=== PATIENT | female | born 1960 | race Caucasian/White ===

== ENCOUNTER 2024-08-13 07:42 | Outpatient (CLI) | payer OTHER ==
[2024-08-13 09:33] LABS: Anion Gap 12 mmol/L (10-20); BUN (Urea Nitrogen) 14 mg/dL (9.8-20.1); Calc. Creatinine Clearance 0 mL/min (70-130); Calcium 9.3 mg/dL (7.8-10.44); Carbon Dioxide 25 mmol/L (23-31); Chloride 108 mmol/L (98-107); Estimated GFR 85; Glucose 90 mg/dL (80-115); Potassium 3.8 mmol/L (3.5-5.1); Sodium 141 mmol/L (136-145)
[2024-08-13 09:34] LABS: PTT 31.4 sec (22.9-36.1); Prothrombin Time 13.2 sec (12.0-14.7)
[2024-08-13 09:45] LABS: #Basophils 0.03 10x3/uL (0.0-0.2); %Basophils 0.4 % (0.0-1.0); %Eosinophils 1.6 % (0.0-10.0); %Lymphocytes 37.8 % (21.0-51.0); %Monocytes 9.6 % (0.0-10.0); %Neutrophils 50.2 % (42.0-75.0); Hemoglobin 13.4 g/dL (12.0-16.0); Mean Corpuscular HGB CONC 32.7 g/dL (32.0-36.0); Mean Corpuscular Hemoglobin 30.6 pg (27.0-31.0); Mean Corpuscular Volume 93.6 fL (78.0-98.0); Mean Platelet Volume 11.4 fL (7.4-10.4); Platelet Count 207 10x3/uL (130-400); RBC Distribution Width 13.8 % (11.5-14.5); Red Blood Cell (RBC) Count 4.38 mill/uL (4.20-5.40)
== END 2024-08-13 07:43 | disposition home or self-care (01) ==
LOC: LABBT 07:42
PROVIDERS: ATTEND Internal Medicine Cardiovascular Disease
DX: Z01.812 Encounter for preprocedural laboratory examination (principal); I48.0 Paroxysmal atrial fibrillation
CPT/HCPCS: 80048; 85025; 85610; 85730

== ENCOUNTER 2024-09-28 07:59 | Outpatient (CLI) | payer OTHER ==
[2024-09-28 08:33] LABS: #Basophils Less than 0.03 10x3/uL (0.0-0.2); %Basophils 0.3 % (0.0-1.0); %Eosinophils 0.9 % (0.0-10.0); %Lymphocytes 32.3 % (21.0-51.0); %Monocytes 8.4 % (0.0-10.0); %Neutrophils 57.8 % (42.0-75.0); Hematocrit 44.3 % (36.0-47.0); Hemoglobin 14.6 g/dL (12.0-16.0); Mean Corpuscular Hemoglobin 30.7 pg (27.0-31.0); Mean Corpuscular Volume 93.1 fL (78.0-98.0); Mean Platelet Volume 11.1 fL (7.4-10.4); Platelet Count 221 10x3/uL (130-400); RBC Distribution Width 13.7 % (11.5-14.5); Red Blood Cell (RBC) Count 4.76 mill/uL (4.20-5.40)
[2024-09-28 08:46] LABS: Anion Gap 11 mmol/L (10-20); BUN (Urea Nitrogen) 24 mg/dL (9.8-20.1); Calc. Creatinine Clearance 0 mL/min (70-130); Calcium 9.3 mg/dL (7.8-10.44); Carbon Dioxide 25 mmol/L (23-31); Chloride 108 mmol/L (98-107); Estimated GFR 97; Glucose 93 mg/dL (80-115); Potassium 4.1 mmol/L (3.5-5.1); Sodium 140 mmol/L (136-145)
== END 2024-09-28 08:00 | disposition home or self-care (01) ==
LOC: LABBT 07:59
PROVIDERS: ATTEND Internal Medicine Cardiovascular Disease
DX: Z01.812 Encounter for preprocedural laboratory examination (principal); I48.0 Paroxysmal atrial fibrillation
CPT/HCPCS: 80048; 85025; 85610; 85730

== ENCOUNTER 2024-10-01 08:55 | Day surgery (SDC) | payer OTHER ==
[2024-09-28 08:13] VITALS: BMI 32.5
[2024-10-01] MEDS ORDERED: Rocuronium Bromide 10 MG/ML (10ML VIAL) ONE (09:52)
[2024-10-01] MEDS ORDERED: PROPOFOL 20 ML ONE (09:53)
[2024-10-01] MEDS ORDERED: Midazolam HCl 2 mg/2 ml Vial ONE (09:53)
[2024-10-01] MEDS ORDERED: fentaNYL 50 mcg/mL 1 mL Vial ONE ×2 (09:53→16:03)
[2024-10-01] MEDS ORDERED: Lidocaine 2% PF 100 mg/5 ml Syringe ONE (09:54)
[2024-10-01] MEDS ORDERED: Heparin 25,000 units/D5W 500 ML ONE (10:02)
[2024-10-01] MEDS ORDERED: Protamine Sulfate 50 MG/5 ML VIAL ONE ×2 (10:02→15:00)
[2024-10-01] MEDS ORDERED: Heparin 10,000 UNITS/ 10 ML VIAL ONE (10:02)
[2024-10-01] MEDS ORDERED: ePHEDrine Sulfate 50 MG/10 ML VIAL ONE (10:08)
[2024-10-01] MEDS ORDERED: Isoproterenol 0.2 MG/1 ML AMP ONE (11:20)
[2024-10-01] MEDS ORDERED: HYDROmorphone 0.5 MG/0.5 ML SYRINGE ONE (12:02)
[2024-10-01] MEDS ORDERED: Ketamine In 0.9 % NaCl 50 MG/5 ML SYRINGE ONE (12:15)
[2024-10-01] MEDS ORDERED: Glycopyrrolate 0.2 MG/ML 5 ML SYRINGE ONE (12:41)
[2024-10-01] MEDS ORDERED: Dexamethasone 20 MG/5 ML VIAL ONE (12:41)
[2024-10-01] MEDS ORDERED: PHENYLEPHRINE-NS 100 MCG/ML 10 ML SYRINGE ONE (12:41)
[2024-10-01] MEDS ORDERED: SUGAMMADEX SODIUM 200 MG/2 ML VIAL ONE ×2 (15:02→15:13)
[2024-10-01] MEDS ORDERED: Ondansetron PF 4 MG/2 ML Vial ONE (16:04)
== END 2024-10-01 19:05 | disposition home or self-care (01) ==
LOC: SDC 08:55
PROVIDERS: ATTEND Internal Medicine Cardiovascular Disease
PROC: 4A023FZ Measurement of Cardiac Rhythm, Percutaneous Approach (ICD-10-PCS; principal; 2024-10-01)
DX: I48.0 Paroxysmal atrial fibrillation (principal); I34.0 Nonrheumatic mitral (valve) insufficiency; E78.5 Hyperlipidemia, unspecified; Z90.49 Acquired absence of other specified parts of digestive tract; Z88.0 Allergy status to penicillin; Z88.8 Allergy status to other drugs, medicaments and biological substances; Z79.01 Long term (current) use of anticoagulants; Z79.899 Other long term (current) drug therapy
CPT/HCPCS: 85347; 93005; 93010; 93622; 93623; 93656; 93657; C1730; C1732; C1733; C1759; C1760; C1766; C1769; C1894; J1100; J1644; J2003; J2250; J2405; J2704; J2720; J3010; J3490